=== PATIENT | female | born 1955 | race Caucasian/White ===

== ENCOUNTER 2019-08-25 16:08 | Emergency (ER) | payer BC, SELFPAY ==
[2019-08-25 16:23] VITALS: PULSE 90; RESP 18; TEMP 38.2; O2SAT 97; BMI 21.9
[2019-08-25 16:38] VITALS: BP 143/72; PULSE 78; RESP 17; TEMP 37.2; O2SAT 95
--- NOTE | 2019-08-25 17:02 | W.ED.FEVER ---
Documented by User: Saqib Hartmann DO 08/31/19 17:41 HPI - Fever General: Chief Complaint: Fever Stated Complaint: FEVER/FOGGY/CHILLS Time Seen by Provider: 08/25/19 16:10 History of Present Illness: HPI Narrative: 64-year-old female presents with a low-grade fever she has been fatigued with chills and a slight nonproductive cough along with diarrhea and headache for the last 2 days. She reports a T-max of 102. Initially this began after tick bite he did not have a rash from when she called a nurse practitioner she sees to did not see her but did start her on some doxycycline. Doxycycline seemed actually increased diarrhea and she reported getting up to 3 episodes a day she denies any dysuria never did develop any rash denies any abdominal pain. She has a roommate who is not been ill. They did report that someone had called her boss asking if they have been tested for COVID-19 they do not know of any positive cases. MD elicited complaint: fever Onset (ago): day(s) (2) Measured temperature: 102 F Exacerbating factors: nothing Relieving factors: nothing Associated symptoms: Reports chills, cough, diarrhea, headache(s), myalgias, nausea, night sweats, rhinorrhea and short of breath; Deny abdominal pain, flank pain, chest pain, dysuria, extremity pain, nasal congestion, rash, sinus pain, stiffness, sore throat, vaginal discharge, vomiting, weight loss or other Treatments prior to arrival fever: none Review of Systems Const: Reports: chills and night sweats ENMT: Denies: nasal congestion or sinus pain Card: Denies: chest pain Resp: Reports: dyspnea; Denies: productive cough or non-productive cough GI: Reports: nausea and diarrhea; Denies: abdominal pain or vomiting : Denies: flank pain, dysuria or vaginal discharge Musc: Denies: extremity pain Skin/Breast: Denies: rash or pruritus Neuro: Reports: headache(s) PFS ED PFSH: Medical History (Updated 08/25/19 @ 18:50 by José Manuel Rosenberg DO) History of pericarditis Surgical History (Updated 08/25/19 @ 17:10 by Saqib Hartmann DO) H/O craniotomy H/O hand surgery H/O: hysterectomy Social History Smoking and tobacco status: never smoked Physical Exam Const: COMMON NORMALS: no acute distress GENERAL APPEARANCE: cooperative and comfortable ORIENTATION/CONSCIOUSNESS: Yes awake, Yes oriented to person, Yes oriented to place and Yes oriented to time HENMT: COMMON NORMALS: normocephalic, atraumatic, hearing grossly normal bilaterally, external ears normal, EAC's normal, TM's normal bilaterally, Normal nasal mucous membranes and turbinates present, moist oral mucous membranes and oropharynx normal HEAD & SCALP: normocephalic and atraumatic NOSE: Normal nasal mucous membranes and turbinates present EXTERNAL EAR: Yes external ears normal EXTERNAL AUDITORY CANAL: EAC's normal TYMPANIC MEMBRANE: TM's normal bilaterally Eye: COMMON NORMALS: Equal, round and reactive pupils present, EOMs intact bilaterally, conjunctivae normal and no scleral icterus CONJUNCTIVA: Yes conjunctivae normal PUPIL: Yes Equal, round and reactive pupils present Neck/C-Spine: COMMON NORMALS: full ROM, no lymphadenopathy, supple and no JVD Lymph: LYMPHATIC: no lymphadenopathy noted and no lymphedema noted Resp: COMMON NORMALS: normal respiratory effort, No retractions, No use of accessory muscles and clear to auscultation bilaterally AUSCULTATION: clear to auscultation bilaterally Cardio: COMMON NORMALS: no JVD, regular rate, regular rhythm and No murmurs present (Cardio) RATE: regular rate RHYTHM: regular rhythm GI: COMMON NORMALS: Soft to palpation and No hepatosplenomegaly present AUSCULTATION: Yes normoactive bowel sounds PALPATION: Yes Soft to palpation, No Tenderness to palpation present (GI), No Guarding due to palpation present (GI) and Yes No hepatosplenomegaly present Extremity: COMMON NORMALS: normal to inspection, capillary refill normal, no clubbing, cyanosis or edema, no calf tenderness and no pedal edema Neuro: SENSORIUM/ORIENTATION: Yes oriented to person, Yes oriented to place and Yes oriented to time Skin: COMMON NORMALS: no rashes or lesions noted GENERAL SKIN EXAM: no rashes or lesions noted Course Vital Signs: Vital signs: Vital Signs Temperature 98.9 F 08/25/19 16:38 Pulse Rate 16 L 08/25/19 19:17 Respiratory Rate 82 H 08/25/19 19:17 Blood Pressure 136/72 08/25/19 19:17 Pulse Oximetry 98 08/25/19 19:17 MDM - Fever MDM Narrative: Medical decision making narrative: Care turned over to Dr. Rosenberg at change of shift see his note for definitive diagnosis and disposition Lab Data: Labs: Lab Results 08/25/19 08/25/19 08/25/19 Range/Units 16:45 17:13 17:13 WBC 2.0 L (4.0-10.0) 10^3/ uL RBC 4.43 (4.1-5.3) 10^6/u L Hgb 13.5 (11.5-15.3) g/dL Hct 40.4 (37.0-47.0) % MCV 91.2 (81-99) fL MCH 30.5 (28.0-34.0) pg MCHC 33.4 (30.0-36.0) g/dL RDW 12.2 (12.1-15.1) % Plt Count 169 (130-400) 10^3/c mm MPV 10.6 H (7.4-10.4) fL Neut % (Auto) 42.5 % Lymph % (Auto) 42.5 % [place] % (Auto) 14.0 % Eos % (Auto) 0.0 % Baso % (Auto) 1.0 % Neut # (Auto) 0.9 L (1.8-7.7) 10^3/u L Lymph # (Auto) 0.9 (0.8-4.8) 10^3/u L [place] # (Auto) 0.3 (0.2-0.9) 10^3/u L Eos # (Auto) 0.0 (0.0-0.8) 10^3/u L Baso # (Auto) 0.0 (0.0-0.1) 10^3/u L Nucleated RBC % (a uto) 0 % Nucleated RBCs # 0.0 /100WBC Sodium 137 (136-145) mmol/L Potassium 3.3 L (3.5-5.1) mmol/L Chloride 99 (98-107) mmol/L Carbon Dioxide 26 (22-29) mmol/L Anion Gap 15.3 (5-19) BUN 12 (8-23) mg/dL Creatinine 0.6 (0.5-0.9) mg/dL GFR Calculation 101.3 (90-130) mL/min Glucose 105 (65-115) mg/dL Calculated Osmolal ity 280 L (285-295) mOsm/k g Lactate (0.5-2.2) mmol/L Calcium 9.6 (8.5-10.5) mg/dL Total Bilirubin 1.0 (0.15-1.2) mg/dL AST 30 (0-32) U/L ALT 20 (0-33) U/L Alkaline Phosphata se 67 (35-105) IU/L Total Protein 7.1 (6.6-8.7) g/dL Albumin 4.8 (3.5-5.2) g/dL Globulin 2.3 (1.3-4.6) g/dL Lipase 32 (13-60) U/L Urine Color Yellow (Yellow) Urine Appearance Clear (CLEAR) Urine pH 7 (5-7) Ur Specific Gravit y 1.000 L (1.005-1.030) Urine Protein Neg (Negative) Urine Glucose (UA) Norm (Normal) Urine Ketones Negative (Negative) Urine Blood Neg (Negative) Urine Nitrate Negative (Negative) Urine Bilirubin Neg (NEGATIVE) Urine Urobilinogen Norm (Negative) mg/dL Ur Leukocyte Alexandrea ase Negative (Negative) Lyme Ab (Western B lot) index E. chaffeensis IgG Ab E. chaffeensis IgM Ab E. chaffeensis Int erp Rickettsia IgG Ab Rickettsia IgM Ab SARS-CoV-2 RNA (RT -PCR) (NOT DETECTED) 08/25/19 08/25/19 08/25/19 Range/Units 17:13 18:05 19:02 WBC (4.0-10.0) 10^3/ uL RBC (4.1-5.3) 10^6/u L Hgb (11.5-15.3) g/dL Hct (37.0-47.0) % MCV (81-99) fL MCH (28.0-34.0) pg MCHC (30.0-36.0) g/dL RDW (12.1-15.1) % Plt Count (130-400) 10^3/c mm MPV (7.4-10.4) fL Neut % (Auto) % Lymph % (Auto) % [place] % (Auto) % Eos % (Auto) % Baso % (Auto) % Neut # (Auto) (1.8-7.7) 10^3/u L Lymph # (Auto) (0.8-4.8) 10^3/u L [place] # (Auto) (0.2-0.9) 10^3/u L Eos # (Auto) (0.0-0.8) 10^3/u L Baso # (Auto) (0.0-0.1) 10^3/u L Nucleated RBC % (a uto) % Nucleated RBCs # /100WBC Sodium (136-145) mmol/L Potassium (3.5-5.1) mmol/L Chloride (98-107) mmol/L Carbon Dioxide (22-29) mmol/L Anion Gap (5-19) BUN (8-23) mg/dL Creatinine (0.5-0.9) mg/dL GFR Calculation (90-130) mL/min Glucose (65-115) mg/dL Calculated Osmolal ity (285-295) mOsm/k g Lactate 0.8 (0.5-2.2) mmol/L Calcium (8.5-10.5) mg/dL Total Bilirubin (0.15-1.2) mg/dL AST (0-32) U/L ALT (0-33) U/L Alkaline Phosphata se (35-105) IU/L Total Protein (6.6-8.7) g/dL Albumin (3.5-5.2) g/dL Globulin (1.3-4.6) g/dL Lipase (13-60) U/L Urine Color (Yellow) Urine Appearance (CLEAR) Urine pH (5-7) Ur Specific Gravit y (1.005-1.030) Urine Protein (Negative) Urine Glucose (UA) (Normal) Urine Ketones (Negative) Urine Blood (Negative) Urine Nitrate (Negative) Urine Bilirubin (NEGATIVE) Urine Urobilinogen (Negative) mg/dL Ur Leukocyte Alexandrea ase (Negative) Lyme Ab (Western B lot) <0.90 index E. chaffeensis IgG Ab <1:64 E. chaffeensis IgM Ab <1:20 E. chaffeensis Int erp See note Rickettsia IgG Ab Not detected Rickettsia IgM Ab Not detected SARS-CoV-2 RNA (RT -PCR) Not detected (NOT DETECTED) Discharge Plan Discharge Patient Disposition: Home, Self-Care Clinical Impression: Fever of unknown origin Condition: Stable Discharge Orders: Discharge Order (Routine); Ordered 08/25/19 Ordered By: José Manuel Rosenberg Referrals: Susan Jones APN [Family Provider] - 4-7 days Discharge Diet: Usual diet Discharge Activity: Limit activity as instructed Patient Instructions: Fever in Adults (ED) Activity Restrictions/Additional Instructions: The CDC advises that you quarantine yourself at home, until you get negative results from your COVID testing. If you are positive, you should quarantine for a total of 2 weeks as a minimum. Return to the emergency department for continued fevers without improvement, worsening cough, shortness of breath, spreading rash, other concerning symptoms. You will be called about your COVID results, as well as your tick panel results. Discharge Date/Time: 08/25/19 19:19 Coding Level of Care Code ED District Or District Office Director for Chg Fwd Exam Comprehensive Documented by User: José Manuel Rosenberg DO 08/25/19 18:51 HPI - Fever General: Chief Complaint: Fever Stated Complaint: FEVER/FOGGY/CHILLS Time Seen by Provider: 08/25/19 16:10 PFS ED PFSH: Medical History (Updated 08/25/19 @ 18:50 by José Manuel Rosenberg DO) History of pericarditis Surgical History (Updated 08/25/19 @ 17:10 by Saqib Hartmann DO) H/O craniotomy H/O hand surgery H/O: hysterectomy Social History Smoking and tobacco status: never smoked Course Vital Signs: Vital signs: Vital Signs Temperature 98.9 F 08/25/19 16:38 Pulse Rate 16 L 08/25/19 19:17 Respiratory Rate 82 H 08/25/19 19:17 Blood Pressure 136/72 08/25/19 19:17 Pulse Oximetry 98 08/25/19 19:17 MDM - Fever MDM Narrative: Medical decision making narrative: 64-year-old lady checked out to me by Dr. Raphael. She has a fever at home with chills. No other specific symptoms. She is mildly leukopenic. She has a low potassium which was repleted. There are no other significant lab findings. She did have a tick bite, but there is no evidence of erythema migrans to suggest tick fever. A tick panel will be sent due to the decreased white blood cell count. She is also tested for COVID. She will quarantine herself at home until she hears her COVID results back. For now she will stop the doxycycline, as we believe it is making her ill with diarrhea. Lab Data: Labs: Lab Results 08/25/19 08/25/19 08/25/19 Range/Units 16:45 17:13 17:13 WBC 2.0 L (4.0-10.0) 10^3/ uL RBC 4.43 (4.1-5.3) 10^6/u L Hgb 13.5 (11.5-15.3) g/dL Hct 40.4 (37.0-47.0) % MCV 91.2 (81-99) fL MCH 30.5 (28.0-34.0) pg MCHC 33.4 (30.0-36.0) g/dL RDW 12.2 (12.1-15.1) % Plt Count 169 (130-400) 10^3/c mm MPV 10.6 H (7.4-10.4) fL Neut % (Auto) 42.5 % Lymph % (Auto) 42.5 % [place] % (Auto) 14.0 % Eos % (Auto) 0.0 % Baso % (Auto) 1.0 % Neut # (Auto) 0.9 L (1.8-7.7) 10^3/u L Lymph # (Auto) 0.9 (0.8-4.8) 10^3/u L [place] # (Auto) 0.3 (0.2-0.9) 10^3/u L Eos # (Auto) 0.0 (0.0-0.8) 10^3/u L Baso # (Auto) 0.0 (0.0-0.1) 10^3/u L Nucleated RBC % (a uto) 0 % Nucleated RBCs # 0.0 /100WBC Sodium 137 (136-145) mmol/L Potassium 3.3 L (3.5-5.1) mmol/L Chloride 99 (98-107) mmol/L Carbon Dioxide 26 (22-29) mmol/L Anion Gap 15.3 (5-19) BUN 12 (8-23) mg/dL Creatinine 0.6 (0.5-0.9) mg/dL GFR Calculation 101.3 (90-130) mL/min Glucose 105 (65-115) mg/dL Calculated Osmolal ity 280 L (285-295) mOsm/k g Lactate (0.5-2.2) mmol/L Calcium 9.6 (8.5-10.5) mg/dL Total Bilirubin 1.0 (0.15-1.2) mg/dL AST 30 (0-32) U/L ALT 20 (0-33) U/L Alkaline Phosphata se 67 (35-105) IU/L Total Protein 7.1 (6.6-8.7) g/dL Albumin 4.8 (3.5-5.2) g/dL Globulin 2.3 (1.3-4.6) g/dL Lipase 32 (13-60) U/L Urine Color Yellow (Yellow) Urine Appearance Clear (CLEAR) Urine pH 7 (5-7) Ur Specific Gravit y 1.000 L (1.005-1.030) Urine Protein Neg (Negative) Urine Glucose (UA) Norm (Normal) Urine Ketones Negative (Negative) Urine Blood Neg (Negative) Urine Nitrate Negative (Negative) Urine Bilirubin Neg (NEGATIVE) Urine Urobilinogen Norm (Negative) mg/dL Ur Leukocyte Alexandrea ase Negative (Negative) Lyme Ab (Western B lot) index E. chaffeensis IgG Ab E. chaffeensis IgM Ab E. chaffeensis Int erp Rickettsia IgG Ab Rickettsia IgM Ab SARS-CoV-2 RNA (RT -PCR) (NOT DETECTED) 08/25/19 08/25/19 08/25/19 Range/Units 17:13 18:05 19:02 WBC (4.0-10.0) 10^3/ uL RBC (4.1-5.3) 10^6/u L Hgb (11.5-15.3) g/dL Hct (37.0-47.0) % MCV (81-99) fL MCH (28.0-34.0) pg MCHC (30.0-36.0) g/dL RDW (12.1-15.1) % Plt Count (130-400) 10^3/c mm MPV (7.4-10.4) fL Neut % (Auto) % Lymph % (Auto) % [place] % (Auto) % Eos % (Auto) % Baso % (Auto) % Neut # (Auto) (1.8-7.7) 10^3/u L Lymph # (Auto) (0.8-4.8) 10^3/u L [place] # (Auto) (0.2-0.9) 10^3/u L Eos # (Auto) (0.0-0.8) 10^3/u L Baso # (Auto) (0.0-0.1) 10^3/u L Nucleated RBC % (a uto) % Nucleated RBCs # /100WBC Sodium (136-145) mmol/L Potassium (3.5-5.1) mmol/L Chloride (98-107) mmol/L Carbon Dioxide (22-29) mmol/L Anion Gap (5-19) BUN (8-23) mg/dL Creatinine (0.5-0.9) mg/dL GFR Calculation (90-130) mL/min Glucose (65-115) mg/dL Calculated Osmolal ity (285-295) mOsm/k g Lactate 0.8 (0.5-2.2) mmol/L Calcium (8.5-10.5) mg/dL Total Bilirubin (0.15-1.2) mg/dL AST (0-32) U/L ALT (0-33) U/L Alkaline Phosphata se (35-105) IU/L Total Protein (6.6-8.7) g/dL Albumin (3.5-5.2) g/dL Globulin (1.3-4.6) g/dL Lipase (13-60) U/L Urine Color (Yellow) Urine Appearance (CLEAR) Urine pH (5-7) Ur Specific Gravit y (1.005-1.030) Urine Protein (Negative) Urine Glucose (UA) (Normal) Urine Ketones (Negative) Urine Blood (Negative) Urine Nitrate (Negative) Urine Bilirubin (NEGATIVE) Urine Urobilinogen (Negative) mg/dL Ur Leukocyte Alexandrea ase (Negative) Lyme Ab (Western B lot) <0.90 index E. chaffeensis IgG Ab <1:64 E. chaffeensis IgM Ab <1:20 E. chaffeensis Int erp See note Rickettsia IgG Ab Not detected Rickettsia IgM Ab Not detected SARS-CoV-2 RNA (RT -PCR) Not detected (NOT DETECTED) Discharge Plan Discharge Patient Disposition: Home, Self-Care Clinical Impression: Fever of unknown origin Condition: Stable Discharge Orders: Discharge Order (Routine); Ordered 08/25/19 Ordered By: José Manuel Rosenberg Referrals: Susan Jones APN [Family Provider] - 4-7 days Discharge Diet: Usual diet Discharge Activity: Limit activity as instructed Patient Instructions: Fever in Adults (ED) Activity Restrictions/Additional Instructions: The CDC advises that you quarantine yourself at home, until you get negative results from your COVID testing. If you are positive, you should quarantine for a total of 2 weeks as a minimum. Return to the emergency department for continued fevers without improvement, worsening cough, shortness of breath, spreading rash, other concerning symptoms. You will be called about your COVID results, as well as your tick panel results. Discharge Date/Time: 08/25/19 19:19 Coding Level of Care Code ED District Or District Office Director for Karen Echols Exam Comprehensive
--- NOTE | 2019-08-25 17:03 | XRR_ITS ---
PROCEDURE INFORMATION: Exam: XR Chest, 1 View Exam date and time: 08/25/2019 5:04 PM Age: 64 years old Clinical indication: Shortness of breath; Patient HX: Increased SOB; Additional info: Dyspnea/cough TECHNIQUE: Imaging protocol: XR of the chest Views: 1 view. COMPARISON: No relevant prior studies available. FINDINGS: Lungs: Unremarkable. No consolidation. Pleural space: Unremarkable. No pleural effusion. No pneumothorax. Heart/Mediastinum: Cardiac structures and configuration with arterial sclerosis. Bones/joints: Unremarkable. XR/XR chest 1V portable [id number] IMPRESSION: Nonacute.
[2019-08-25] MEDS: sodium chloride 0.9% 1,000 ML 999 ML IV (17:14)
[2019-08-25 17:26] LABS: Hematocrit 40.4 % (37.0-47.0); Hemoglobin 13.5 g/dL (11.5-15.3); Lymphocytes # 0.9 10^3/uL (0.8-4.8); Lymphocytes % 42.5 %; Mean Corpuscular HGB Conc 33.4 g/dL (30.0-36.0); Mean Corpuscular Hemoglobin 30.5 pg (28.0-34.0); Mean Corpuscular Volume 91.2 fL (81-99); Mean Platelet Volume 10.6 fL (7.4-10.4); Monocytes # 0.3 10^3/uL (0.2-0.9); Neutrophils # 0.9 10^3/uL (1.8-7.7); Neutrophils % 42.5 %; Nucleated Red Blood Cells % 0 %; Platelet Count 169 10^3/cmm (130-400); Red Blood Count 4.43 10^6/uL (4.1-5.3); Red Cell Distribution Width 12.2 % (12.1-15.1)
[2019-08-25 17:43] LABS: Alanine Aminotransferase 20 U/L (0-33); Albumin Level 4.8 g/dL (3.5-5.2); Alkaline Phosphatase 67 IU/L (35-105); Anion Gap 15.3 (5-19); Aspartate Amino Transferase 30 U/L (0-32); Blood Urea Nitrogen 12 mg/dL (8-23); Calcium 9.6 mg/dL (8.5-10.5); Carbon Dioxide 26 mmol/L (22-29); Chloride 99 mmol/L (98-107); Globulin 2.3 g/dL (1.3-4.6); Glomerular Filtration Rate 101.3 mL/min (90-130); Glucose 105 mg/dL (65-115); Lipase 32 U/L (13-60); Osmolality Calculated 280 mOsm/kg (285-295); Potassium 3.3 mmol/L (3.5-5.1); Sodium 137 mmol/L (136-145); Total Protein 7.1 g/dL (6.6-8.7)
[2019-08-25 17:44] LABS: Lactate (Lactic Acid level) 0.8 mmol/L (0.5-2.2)
--- NOTE | 2019-08-25 17:44 | PC.NURSE ---
EKG done at 1722 and shown to ER doctor
[2019-08-25 17:55] LABS: Add Urine Microscopic? NO
[2019-08-25 18:05] LABS: Bilirubin Urine Neg (NEGATIVE); Blood Urine Neg (Negative); Glucose Urine UA Norm (Normal); Ketones Urine Negative (Negative); Leukocyte Esterase Urine Negative (Negative); Nitrate Urine Negative (Negative); Protein Urine Neg (Negative); Urine Appearance Clear (CLEAR); Urine Color Yellow (Yellow); Urobilinogen Urine Norm (Negative); pH Urine 7 (5-7)
--- NOTE | 2019-08-25 18:05 | PC.NURSE ---
Patient swabbed for COVID-19,swab sent to lab immediately after for testing.
[2019-08-25] MEDS: potassium chloride oral liq 20 mEq/15 mL UDC 60 MEQ PO (18:26)
[2019-08-25 18:38] VITALS: BP 179/91; PULSE 83; RESP 18; O2SAT 100
[2019-08-25 19:17] VITALS: BP 136/72; PULSE 16; RESP 82; O2SAT 98
[2019-08-28 11:27] LABS: Quest SARS-CoV-2 RNA NOT DETECTED (NOT DETECTED)
[2019-08-28 12:52] LABS: Lyme AB Screen <0.90 index
--- NOTE | 2019-08-28 18:28 | PC.NURSE ---
1630 Pt called and notified of negative COVID results
[2019-08-30 17:01] LABS: RMSF IGG NOT DETECTED; RMSF IGM NOT DETECTED
[2019-08-30 17:31] LABS: E. Chaffeensis AB IGG <1:64; E. Chaffeensis AB IGM <1:20
== END 2019-08-25 19:19 | disposition home or self-care (01) ==
PROVIDERS: Family Medicine; Emergency Provider Emergency Medicine; Family Provider Nurse Practitioner Family
DX: R50.9 Fever, unspecified (principal)
CPT/HCPCS: 12345; 36415; 71045; 80053; 81003; 83605; 83690; 85025; 86618; 86666; 86757; 87040; 87635; 96360; 99283; 99284; J7030